=== PATIENT | female | born 1975 | race Caucasian/White ===

== ENCOUNTER 2017-09-14 23:17 | Emergency (ER) | END 2017-09-15 00:46 | disposition home or self-care (01) | DX: H92.01 Otalgia, right ear (principal) | CPT/HCPCS: 69209; 96372; J1885; J7512; Z7502; Z7610 ==

== ENCOUNTER 2018-08-15 10:22 | Emergency (ER) | END 2018-08-15 14:12 | disposition home or self-care (01) ==

== ENCOUNTER 2018-10-21 07:22 | Emergency (ER) | END 2018-10-21 09:31 | disposition home or self-care (01) ==